=== PATIENT | female | born 1990 | race Caucasian/White ===

== ENCOUNTER 2017-03-14 03:10 | Inpatient (IN) | payer MEDICAID ==
[~2017-03-14] VITALS: Ht 165.1 cm; Wt 78.0 kg
[~2017-03-14 03:10] MED LIST: IBUP-974 PO
[2017-03-14] MEDS ORDERED: LACTATED RINGERS 1,000 ML IV SCH (03:26)
[2017-03-14] MEDS ORDERED: BETAMETH ACET/BETAMETH NA PH 30 MG/5 ML VIAL IM SCH (03:30)
[2017-03-14] MEDS ORDERED: NALBUPHINE HYDROCHLORIDE 10 MG/ML VIAL IVP PRN (03:30)
[2017-03-14] MEDS ORDERED: OXYTOCIN 20 UNITS/LR PREMIX 1,000 ML IV SCH (03:30)
[2017-03-14] MEDS ORDERED: OXYTOCIN 10 UNITS/ML VIAL IM SCH (03:30)
[2017-03-14] MEDS ORDERED: PROMETHAZINE 25 MG/ML VIAL IVP PRN (03:30)
[2017-03-14] MEDS ORDERED: AMPICILLIN 2,000 MG in NACL 0.9% MINI-BAG PLUS 100 ML IV SCH (03:30)
[2017-03-14] MEDS ORDERED: AMPICILLIN 1,000 MG in NACL 0.9% MINI-BAG PLUS 50 ML IV SCH (04:00)
[2017-03-14 04:04] LABS: BASOPHILS # (AUTO) 0.2 K/uL (0.00-0.22); BASOPHILS % (AUTO) 2.4 % (0.0-2.0); EOSINOPHILS # (AUTO) 0.1 K/uL (0-0.4); EOSINOPHILS % (AUTO) 1.1 % (0.0-4.0); HEMATOCRIT 35.3 % (36-48); HEMOGLOBIN 11.5 g/dL (12.0-16.0); LYMPHOCYTES # (AUTO) 2.5 K/uL (2.5-16.5); LYMPHOCYTES % (AUTO) 38.9 % (20.5-51.1); MEAN CORPUSCULAR HEMOGLOBIN 29 pg (27-31); MEAN CORPUSCULAR HGB CONC 33 g/dL (33-37); MEAN CORPUSCULAR VOLUME 90 fL (80-94); MONOCYTES # (AUTO) 0.5 K/uL (0.8-1.0); MONOCYTES % (AUTO) 8.2 % (1.7-9.3); NEUTROPHILS % (AUTO) 49.4 % (42.2-75.2); PLATELET COUNT (AUTO) 267 K/uL (140-450); RED BLOOD CELL COUNT(AUTO) 3.92 MIL/uL (4.20-5.40); RED CELL DISTRIBUTION WIDTH 12.2 % (11.6-13.7); WHITE BLOOD COUNT (AUTO) 6.4 K/uL (4.8-10.8)
[2017-03-14] MEDS ORDERED: AMPICILLIN 2,000 MG VIAL ONE (04:04)
[2017-03-14] MEDS ORDERED: BETAMETH ACET/BETAMETH NA PH 30 MG/5 ML VIAL IM ONE (04:04)
[2017-03-14] MEDS ORDERED: FERR325E14 PO (05:15)
[2017-03-14] MEDS ORDERED: PREN-546 PO (05:15)
[2017-03-14 05:19] VITALS: BP 114/59
[2017-03-14 07:32] LABS: APPEARANCE,URINE CLEAR (CLEAR); BILIRUBIN,URINE NEGATIVE (NEGATIVE); BLOOD, URINE NEGATIVE (NEGATIVE); COLOR,URINE YELLOW (YELLOW); LEUKOCYTE ESTERASE ,URINE NEGATIVE (NEGATIVE); NITRITE, URINE NEGATIVE (NEGATIVE); UGLUCOSE NEGATIVE (NEGATIVE)
[2017-03-14 07:42] LABS: RBC,URINE 0-5 (RARE) /HPF (0-5); WBC,URINE 0-5 (RARE) /HPF (0-5)
[2017-03-14] MEDS ORDERED: AMPICILLIN 1,000 MG VIAL ONE (07:45)
[2017-03-14] MEDS ORDERED: NALBUPHINE HYDROCHLORIDE 10 MG/ML VIAL ONE (08:01)
[2017-03-14] MEDS ORDERED: PROMETHAZINE 25 MG/ML VIAL ONE (08:02)
[2017-03-14] MEDS ORDERED: MORPHINE SULFATE 10 MG/ML SYR IVP PRN (11:00)
[2017-03-14] MEDS ORDERED: MORPHINE SULFATE 10 MG/ML SYR ONE (11:09)
[2017-03-14] MEDS ORDERED: OXYTOCIN 10 UNITS/ML VIAL ONE (11:10)
[2017-03-14] MEDS ORDERED: ROPIVACAINE 0.2%/NS PREMIX 0 ML EPI ONE (11:46)
[2017-03-14] MEDS ORDERED: NALOXONE 0.4 MG/ML VIAL ONE (11:48)
[2017-03-14] MEDS ORDERED: HYDROcodone/APAP 5/325 MG 1 TAB TAB PO PRN (15:20)
[2017-03-14] MEDS ORDERED: IBUPROFEN 800 MG TAB PO PRN (15:20)
[2017-03-14] MEDS ORDERED: MEASLES, MUMPS, AND RUBELLA 1 VIAL SQVAC PRN (15:20)
[2017-03-14] MEDS ORDERED: oxyCODONE/APAP 5/325 MG 1 TAB TAB PO PRN (15:20)
[2017-03-14] MEDS ORDERED: METHYLERGONOVINE 0.2 MG/ML AMP IM PRN (15:20)
[2017-03-14] MEDS ORDERED: DOCUSATE SOD/SENNA 50/8.6 MG 1 TAB PO SCH (21:00)
[2017-03-14] MEDS ORDERED: TEMAZEPAM 15 MG CAP PO PRN (21:00)
[2017-03-15 06:55] LABS: HEMATOCRIT 32.1 % (36-48); HEMOGLOBIN 10.6 g/dL (12.0-16.0)
--- NOTE | 2017-03-15 07:06 | NUR ---
PATIENT HAS BEEN SCREENED AND CATEGORIZED LOW NUTRITION RISK. PATIENT WILL BE SEEN WITHIN 7 DAYS OF ADMISSION. 03/21/17 DORIS MONTES MS, RDN
[2017-03-15] MEDS ORDERED: IBUP-2213 PO (09:53)
== END 2017-03-16 15:15 | disposition home or self-care (01) | DRG 560 ==
LOC: MFCC 03:10
PROVIDERS: ADMIT Obstetrics & Gynecology; ATTEND Obstetrics & Gynecology
PROC: 10E0XZZ Delivery of Products of Conception, External Approach (ICD-10-PCS; principal; 2017-03-14)
DX: O42.913 Preterm premature rupture of membranes, unspecified as to length of time between rupture and onset of labor, third trimester (principal); Z37.0 Single live birth; Z3A.36 36 weeks gestation of pregnancy; Z28.21 Immunization not carried out because of patient refusal
CPT/HCPCS: 36415; 51702; 59409; 81001; 85018; 85025; 86592; 86886; 86900; 86901; J0290; J0702; J2270; J2300; J2310; J2550; J2590; J2795; J7120

== ENCOUNTER 2024-03-09 09:50 | Emergency (ER) | payer MEDICAID ==
[~2024-03-09] VITALS: Ht 152.4 cm; Wt 79.8 kg
[~2024-03-09 09:50] MED LIST changes: +FERR325E14 PO; +IBUP-2213 PO; -IBUP-974 PO; +PREN-546 PO
[2024-03-09 10:32] VITALS: BP 131/72; PULSE 80; RESP 22; TEMP 98.2; O2SAT 99
[2024-03-09 11:46] LABS: BASOPHILS # (AUTO) 0.1 K/uL (0.00-0.22); BASOPHILS % (AUTO) 1.2 % (0.0-2.0); EOSINOPHILS % (AUTO) 0.6 % (0.0-4.0); HEMATOCRIT 35.7 % (36-48); HEMOGLOBIN 11.9 g/dL (12.0-16.0); LYMPHOCYTES # (AUTO) 1.7 K/uL (2.5-16.5); LYMPHOCYTES % (AUTO) 38.8 % (20.5-51.1); MEAN CORPUSCULAR HEMOGLOBIN 29 pg (27-31); MEAN CORPUSCULAR HGB CONC 33 g/dL (33-37); MEAN CORPUSCULAR VOLUME 87.4 fL (80-94); MONOCYTES # (AUTO) 0.5 K/uL (0.8-1.0); MONOCYTES % (AUTO) 11.5 % (1.7-9.3); NEUTROPHILS # (AUTO) 2.1 K/uL (1.8-7.7); NEUTROPHILS % (AUTO) 47.9 % (42.2-75.2); PLATELET COUNT (AUTO) 278 K/uL (140-450); RED BLOOD CELL COUNT(AUTO) 4.09 MIL/uL (4.20-5.40); RED CELL DISTRIBUTION WIDTH 13.6 % (11.6-13.7); WHITE BLOOD COUNT (AUTO) 4.5 K/uL (4.8-10.8)
[2024-03-09 11:49] LABS: APPEARANCE,URINE CLEAR (CLEAR); BILIRUBIN,URINE NEGATIVE (NEGATIVE); BLOOD, URINE 3+ (NEGATIVE); COLOR,URINE YELLOW (YELLOW); LEUKOCYTE ESTERASE ,URINE 1+ (NEGATIVE); NITRITE, URINE NEGATIVE (NEGATIVE); PROTEIN,URINE NEGATIVE (NEGATIVE); UGLUCOSE NEGATIVE (NEGATIVE); UROBILINOGEN,URINE 0.2 EU/dL (0.2 - 1)
[2024-03-09 12:08] LABS: BACTERIA,URINE 1+ /HPF (None Seen); MUCUS,URINE 1+ /LPF (None Seen); SQUAMOUS EPITHELIAL CELL,UR 4-10 (MOD) /LPF (0-3 (FEW))
[2024-03-09 12:14] LABS: ALBUMIN 3.3 g/dL (3.4-5.0); ANION GAP 14.8 (8-16); CARBON DIOXIDE 24.2 mmol/L (21-32); CREATININE 0.5 mg/dL (0.6-1.3); TOTAL BILIRUBIN 0.3 mg/dL (0.0-1.0); TOTAL PROTEIN, SERUM 7.5 g/dL (6.4-8.2)
[2024-03-09] MEDS ORDERED: CEPH-588 PO (12:47)
[2024-03-09 14:01] VITALS: BP 130/70; PULSE 77; RESP 15; TEMP 98; O2SAT 99
== END 2024-03-09 14:10 | disposition home or self-care (01) ==
LOC: MED 09:50
DX: O03.9 Complete or unspecified spontaneous abortion without complication (principal); Z79.899 Other long term (current) drug therapy; Z3A.11 11 weeks gestation of pregnancy
CPT/HCPCS: 36415; 76801; 80053; 81001; 81025; 83690; 84702; 85025; 86901; 87086; 99284; Q0092